=== PATIENT | male | born 1975 | race Caucasian/White ===

== ENCOUNTER 2018-04-27 11:46 | Emergency (ER) | payer OTHER, SELFPAY ==
[2018-04-27 11:49] VITALS: BP 141/87; PULSE 78; RESP 14; TEMP 36.8; O2SAT 96
--- NOTE | 2018-04-27 11:52 | DI.RAD.S_ITS ---
PROCEDURE: XR HAND RT MIN 3V INDICATIONS: Shelf / hammer fell on right hand. TECHNIQUE: 3 views of the hand(s) acquired. COMPARISON: None. FINDINGS: Bones: No fractures or dislocations. Carpal bones are normally aligned. No suspicious bony lesions. Soft tissues: No suspicious soft tissue calcifications. IMPRESSION: Normal. Dictated by: Arnaldo Alvarez M.D. on 04/27/2018 at 12:09 Approved by: Arnaldo Alvarez M.D. on 04/27/2018 at 12:10
[2018-04-27] MEDS: IBUPROFEN 400 MG TABLET 800 MG PO (11:56)
--- NOTE | 2018-04-27 14:35 | ED_ITS ---
HPI - Extremity Injury (Upper) <GILBERTO Henriquez-BC - Last Filed: 04/27/18 18:34> General Chief Complaint: Extremity Injury, Upper Stated Complaint: RIGHT HAND INJURY FROM DROPPING A HAMMER Time Seen by Provider: 04/27/18 14:35 Source: patient Mode of arrival: ambulatory Limitations: no limitations History of Present Illness HPI narrative: Patient presents after dropping a 20 oz hammer to his right hand. He states it happened approximately 1 hr prior to arrival. He denies any numbness or tingling of his fingers. He does complain of pain and weakness in his hand. Denies any bruising, swelling, or significant abrasion of his right hand. Does note a single 2 mm abrasion at the base of his right thumb. States his tetanus is recent. Related Data Home Medications Medication Instructions Recorded Confirmed albuterol sulfate [Ventolin HFA] 1 puff INH #0 ea 05/15/16 fluoxetine 30 mg PO QDAY #0 05/15/16 gabapentin [Neurontin] 600 mg PO TID #0 05/15/16 insulin glargine [Lantus Solostar 100 unit SQ HS #0 05/15/16 U-100 Insulin] insulin regular human [Humulin R 0 unit SQ SLIDE #0 05/15/16 Regular U-100 Insuln] levothyroxine [Synthroid] 0.25 mg PO Q DAY #0 05/15/16 lisinopril 40 mg PO QDAY #0 05/15/16 oxycodone [OxyContin] 15 mg PO HS #0 05/15/16 simvastatin 40 mg PO QDAY #0 05/15/16 Allergies Allergy/AdvReac Type Severity Reaction Status Date / Time No Known Drug Allergies Allergy Verified 04/27/18 11:51 Review of Systems <GILBERTO Henriquez-BC - Last Filed: 04/27/18 18:34> Review of Systems GENERAL: Denies chills, fatigue, malaise, fever, sweats. HEENT: Denies sinus pain, ear pain, sore throat, difficulty swallowing, dizziness. RESPIRATORY: Denies dyspnea, cough, wheezing, hemoptysis, sputum. CARDIOVASCULAR: Denies chest pain, palpitations, orthopnea, edema, GASTROINTESTINAL: Denies nausea, vomiting, abdominal pain, diarrhea, constipation, melena. : Denies dysuria, frequency, incontinence, hematuria, urinary retention. MUSCULOSKELETAL: See HPI SKIN: HPI NEUROLOGIC: Denies weakness, headache, numbness, change in speech, confusion, seizures, incoordination. PSYCHIATRIC: No concerning psychosocial issues. 12 point review of systems is negative except for those stated above Exam <Sumi BondGILBERTO durand-BC - Last Filed: 04/27/18 18:34> Narrative Exam Narrative: GENERAL: This is a well-nourished, well-developed patient, in no acute distress HEAD: Atraumatic. Normocephalic. No temporal or scalp tenderness. EYES: Pupils equal round and reactive. Extraocular motions intact. No scleral icterus. No injection or drainage. ENT: Nose without bleeding, purulent drainage or septal hematoma. Throat without erythema, tonsillar hypertrophy or exudate. Uvula midline. Airway patent. NECK: Trachea midline. No JVD or lymphadenopathy. Supple, nontender, no meningeal signs. CARDIOVASCULAR: Regular rate and rhythm without murmurs, gallops, or rubs. RESPIRATORY: Clear to auscultation. Breath sounds equal bilaterally. No wheezes , rales, or rhonchi. GASTROINTESTINAL: Abdomen soft, non-tender, nondistended. No hepato-splenomegaly , or palpable masses. No guarding. EXTREMITIES: Pain to palpation 1st phalanx of right thumb. Full range of motion noted right wrist. Pain snuffbox palpation. Capillary refill less than 2 sec all fingers right hand. Radial pulse is intact right hand. Patient has slight decreased extension of right thumb, patient has full flexion of thumb. Patient is able to a thumbs up, thumbs down, make a okay sign with right hand BACK: Nontender without deformity or crepitance. No flank tenderness. NEURO: AOx3. SKIN: 2 mm abrasion noted at the base of right thumb. Otherwise no ecchymosis , erythema wounds or laceration noted right hand. Initial Vital Signs Initial Vital Signs: Vital Signs Temperature 98.2 F 04/27/18 11:49 Pulse Rate 78 04/27/18 11:49 Respiratory Rate 14 04/27/18 11:49 Blood Pressure 141/87 H 04/27/18 11:49 Pulse Oximetry 96 04/27/18 11:49 <Wanda Holder MD - Last Filed: 04/27/18 18:59> Initial Vital Signs Initial Vital Signs: Vital Signs Temperature 98.2 F 04/27/18 11:49 Pulse Rate 78 04/27/18 11:49 Respiratory Rate 14 04/27/18 11:49 Blood Pressure 141/87 H 04/27/18 11:49 Pulse Oximetry 96 04/27/18 11:49 Course <PIO Henriquez - Last Filed: 04/27/18 18:34> Orders Ordered: ED Orders 04/27/18 11:52 XR hand RT min 3V Stat Discontinued Medications Ibuprofen (Advil) 800 mg PO NOW ONE Stop: 04/27/18 11:52 Last Admin: 04/27/18 11:56 Dose: 800 mg Vital Signs - 8 hr 04/27/18 11:49 Temperature 98.2 F Pulse Rate 78 Respiratory Rate 14 Blood Pressure 141/87 H Pulse Oximetry 96 <Wanda Holder MD - Last Filed: 04/27/18 18:59> Orders Ordered: ED Orders 04/27/18 11:52 XR hand RT min 3V Stat Discontinued Medications Ibuprofen (Advil) 800 mg PO NOW ONE Stop: 04/27/18 11:52 Last Admin: 04/27/18 11:56 Dose: 800 mg Vital Signs - 8 hr 04/27/18 11:49 Temperature 98.2 F Pulse Rate 78 Respiratory Rate 14 Blood Pressure 141/87 H Pulse Oximetry 96 MDM - Extremity Injury (Upper) <PIO Henriquez - Last Filed: 04/27/18 18:34> Differential Diagnosis Differential diagnosis: Likely sprain and strain of wrist, fracture of wrist, dislocation of finger, Colles' fracture and fracture of hand Imaging Data hand xray: Radiologist's impression: [address] [address] XRay Report Signed Patient: Sukhdeep Monet JMR#: [id number] : 1975Acct:[id number] Age/Sex: 42 / MDate of Service: 04/27/18 Loc: ED Accession Number: [id number] Procedure: XR hand RT min 3V Ordering Provider: Wanda Holder MD PROCEDURE: XR HAND RT MIN 3V INDICATIONS: Shelf / hammer fell on right hand. TECHNIQUE: 3 views of the hand(s) acquired. COMPARISON: None. FINDINGS: Bones: No fractures or dislocations. Carpal bones are normally aligned. No suspicious bony lesions. Soft tissues: No suspicious soft tissue calcifications. IMPRESSION: Normal. Dictated by: Arnaldo Alvarez M.D. on 04/27/2018 at 12:09 Approved by: Arnaldo Alvarez M.D. on 04/27/2018 at 12:[address] [facility] Narrative Medical decision making narrative: Patient presented with acute right hand injury. Patient's x-ray was negative for any acute fracture. He is hemodynamically stable and pulse motor sensory is intact all fingers right hand. He is placed in a thumb support brace instructed to do rest ice compression elevation as well as [id number] pain medications as needed and able. I encouraged him to follow up with primary care physician if needed. Discharge Plan Departure Patient Disposition: Home Clinical Impression: Hand pain, right Discharge Date/Time: 04/27/18 15:33 Interventions: ED Discharge Assessment Last Done: 04/27/18 15:33 Instructions: How To Perform RICE (Rest, Ice, Compress, Elevate), DI for Hand Pain Activity Restrictions/Additional Instructions: Your x-ray came back with no fracture. Please follow-up with primary care for new or worsening pain. Please use rest ice compression elevation as well as the brace that we have provided for you. Please be re-evaluated for worsening, no improvement any numbness or tingling or concerns about circulation in your hand or thumb. Prescriptions: No Action fluoxetine 40 MG capsule 30 mg PO QDAY Qty: 0 RF: 0 insulin glargine [Lantus Solostar U-100 Insulin] 100 UNIT/1 ML insulin pen 100 unit SQ HS Qty: 0 RF: 0 oxycodone [OxyContin] 40 MG tablet,oral only,ext.rel.12 hr 15 mg PO HS Qty: 0 RF: 0 lisinopril 20 MG tablet 40 mg PO QDAY Qty: 0 RF: 0 albuterol sulfate [Ventolin HFA] 90 MCG/PUFF HFA aerosol inhaler 1 puff INH Qty: 0 RF: 0 gabapentin [Neurontin] 600 MG tablet 600 mg PO TID Qty: 0 RF: 0 simvastatin 40 MG tablet 40 mg PO QDAY Qty: 0 RF: 0 insulin regular human [Humulin R Regular U-100 Insuln] 100 UNIT/1 ML solution SQ SLIDE Qty: 0 RF: 0 levothyroxine [Synthroid] 200 MCG tablet 0.25 mg PO Q DAY Qty: 0 RF: 0
== END 2018-04-27 15:33 | disposition home or self-care (01) ==
PROVIDERS: Emergency Provider Nurse Practitioner Family
DX: M79.641 Pain in right hand (principal); W20.8XXA Other cause of strike by thrown, projected or falling object, initial encounter
CPT/HCPCS: 29260; 73130; 99283

== ENCOUNTER 2020-10-08 00:58 | Emergency (ER) | payer OTHER, SELFPAY ==
--- NOTE | 2020-10-08 01:03 | ED_ITS ---
HPI - GI Bleed General Chief complaint: GI Bleed Stated complaint: has hemorrhoid that ruptured (diabetic) Time Seen by Provider: 10/08/20 01:02 Source: patient Mode of arrival: Ambulatory Limitations: no limitations History of Present Illness HPI Narrative: 45-year-old male daily smoker with history of diabetes, hyperlipidemia, hypertension and obesity presents with a bleeding hemorrhoid. He states he had an episode of straining on the toilet 2 days ago and the following morning he noticed the hemorrhoid was present. It was itchy and slightly painful over the course of the day and this evening started bleeding. He works as a business applications manager and spends a significant amount of time seated and also standing and is no stranger to hemorrhoids. He denies any dizziness, weakness or lightheadedness. He takes no blood thinners. He is otherwise well and free of complaint. He admits that since the bleeding started his pain is significantly improved MD complaint: other Onset (ago): day(s) Pain Consistency: now resolved Severity: mild Relieving factors: none Exacerbating factors: none Associated symptoms: denies other symptoms Treatments Prior to Arrival: none Related Data Home Medications Medication Instructions Recorded Confirmed albuterol sulfate [Ventolin HFA] 1 puff INH #0 ea 05/15/16 fluoxetine 30 mg PO QDAY #0 05/15/16 gabapentin [Neurontin] 600 mg PO TID #0 05/15/16 insulin glargine [Lantus Solostar 100 unit SQ HS #0 05/15/16 U-100 Insulin] insulin regular human [Humulin R 0 unit SQ SLIDE #0 05/15/16 Regular U-100 Insuln] levothyroxine [Synthroid] 0.25 mg PO Q DAY #0 05/15/16 lisinopril 40 mg PO QDAY #0 05/15/16 oxycodone [OxyContin] 15 mg PO HS #0 05/15/16 simvastatin 40 mg PO QDAY #0 05/15/16 Previous Rx's Medication Instructions Recorded hydrocortisone acetate [Anusol-HC] 25 mg ME BID #12 ea 10/08/20 Allergies Allergy/AdvReac Type Severity Reaction Status Date / Time No Known Drug Allergies Allergy Verified 04/27/18 11:51 Review of Systems Constitutional Constitutional: Denies chills, Denies fatigue, Denies fever(s), Denies frequent falls, Denies lethargy and Denies weakness Eyes Eyes: Denies change in vision, Denies eye discharge, Denies irritation and Denies loss of vision ENT Ears, Nose, Mouth, and Throat: Denies change in voice, Denies dizziness, Denies neck pain, Denies sore throat and Denies throat swelling Cardiovascular Cardiovascular: Denies chest pain, Denies irregular heart rhythm, Denies lightheadedness, Denies palpitations, Denies dyspnea, Denies dyspnea on exertion and Denies orthopnea Respiratory Respiratory: Denies cough, Denies dyspnea, Denies dyspnea on exertion and Denies wheezing Gastrointestinal Gastrointestinal: Denies abdominal pain, Denies change in bowel habits, Denies diarrhea, Denies nausea and Denies vomiting Comments: bleeding hemorrhoid Musculoskeletal Musculoskeletal: Denies neck pain and Denies numbness Integumentary/Breasts Skin/Breast: Denies pruritus, Denies erythema, Denies rash and Denies wounds Neurologic Neurologic: Denies behavioral changes, Denies confusion, Denies dizziness, Denies frequent falls, Denies loss of vision, Denies numbness and Denies weakness Psychiatric Psychiatric: Denies anxiety, Denies behavioral changes, Denies confusion, Denies depression, Denies homicidal ideation and Denies suicidal ideation Endocrine Endocrine: Denies fatigue, Denies flushing and Denies palpitations Hematologic/Lymphatic Hematologic/Lymphatic: Denies easy bruising Allergic/Immunologic Allergic/Immunologic: Denies urticaria, Denies throat swelling and Denies wheezing Patient History Social History Smoking Status: Current every day smoker Smoking Status: Current every day smoker alcohol intake frequency: 0-2 drinks per day Substance Use Type: does not use Exam Narrative Exam Narrative: GEN: AOx3 and in mild distress EYES: Pupils are equal, round, and reactive to light and accommodation. Extraoccular muscles are intact bilaterally. There is no subconjunctival hemorrhage or exudate. CHEST: Lungs are clear to auscultation bilaterally and free of wheezes, rales, or rhonchi. Heart rate is regular rhythm, there are no murmurs, clicks, rubs, or gallops. There is no chest wall tenderness. ABD: Abdomen is soft and nontender. There is no guarding or rebound. Bowel sounds are normal in all 4 quadrants. There is no mass or organomegaly. RECTAL: Thrombosed hemorrhoid with minimal active bleeding, no fissure noted. EXT: Full painless ROM of all extremities with no loss of sensation or strength. SKIN: Warm, pink, and dry. No erythema or rash Initial Vital Signs Initial Vital Signs: Vital Signs Temperature 96.8 F L 10/08/20 01:09 Pulse Rate 91 H 10/08/20 01:09 Respiratory Rate 22 10/08/20 01:09 Blood Pressure 181/112 H 10/08/20 01:09 Pulse Oximetry 98 10/08/20 01:09 Course Vital Signs Vital signs: Vital Signs - 8 hr 10/08/20 01:09 Temperature 96.8 F L Pulse Rate 91 H Respiratory Rate 22 Blood Pressure 181/112 H Pulse Oximetry 98 MDM - GI Bleed MDM Narrative Medical decision making narrative: Patient developed hemorrhoid after straining on the toilet and now has bleeding. Pain is improved. Very minimal bleeding. Unable to reduce with pressure. Extensive discussion about importance of stool softeners, attention to hygiene to prevent infection and use of anusol as well as follow up. Also discussed hemorrhoid cushion and Sitz baths. Return precautions given and questions answered to his apparent satisfaction Discharge Plan Departure Patient Disposition: Home Clinical Impression: Hemorrhoids with complication Instructions: DI for Hemorrhoids Activity Restrictions/Additional Instructions: *You have been diagnosed with [ thrombosed hemorrhoid with bleeding ] *What to do: *Take medications as directed: I've printed a prescription which can help resolve your hemorrhoid. Also, be sure to take some over the counter stool softener such as Miralax to help avoid straining with bowel movement. Special care while bathing to be sure to keep the area clean will help decrease the likelihood of infection which is rare. *Follow up with your primary care provider in 2-3 days, call for an appointment. Let them know you were seen in the Emergency Department and that we ask that you be seen in follow up *Return to ER if you should have any new, worsening or concerning symptoms, such as [increased pain, significant increase in bleeding, fever > 101F or other bothersome symptoms ] Prescriptions: New hydrocortisone acetate [Anusol-HC] 25 mg suppository 25 mg ME BID Qty: 12 RF: 0 No Action fluoxetine 40 MG capsule 30 mg PO QDAY Qty: 0 RF: 0 insulin glargine [Lantus Solostar U-100 Insulin] 100 UNIT/1 ML insulin pen 100 unit SQ HS Qty: 0 RF: 0 oxycodone [OxyContin] 40 MG tablet,oral only,ext.rel.12 hr 15 mg PO HS Qty: 0 RF: 0 lisinopril 20 MG tablet 40 mg PO QDAY Qty: 0 RF: 0 albuterol sulfate [Ventolin HFA] 90 MCG/PUFF HFA aerosol inhaler 1 puff INH Qty: 0 RF: 0 gabapentin [Neurontin] 600 MG tablet 600 mg PO TID Qty: 0 RF: 0 simvastatin 40 MG tablet 40 mg PO QDAY Qty: 0 RF: 0 insulin regular human [Humulin R Regular U-100 Insuln] 100 UNIT/1 ML solution 0 unit SQ SLIDE Qty: 0 RF: 0 levothyroxine [Synthroid] 200 MCG tablet 0.25 mg PO Q DAY Qty: 0 RF: 0
[2020-10-08 01:09] VITALS: BP 181/112; PULSE 91; RESP 22; TEMP 36; O2SAT 98; BMI 44.9
--- NOTE | 2020-10-08 01:14 | PC.NURSE ---
Pt endorses that he had a hemorrhoid for 3 days and it ruptured last evening and has been leaking a significant amount of blood. He is concerned due to his diabetic condition.
== END 2020-10-08 01:38 | disposition home or self-care (01) ==
PROVIDERS: Emergency Provider Emergency Medicine
DX: K64.8 Other hemorrhoids (principal)
CPT/HCPCS: 99281